=== PATIENT | female | born 1980 | race Two or more races ===

== ENCOUNTER 2023-09-28 21:58 | Emergency (ER) | payer MEDICAID ==
[~2023-09-28] VITALS: Ht 165.1 cm; Wt 73.0 kg
[2023-09-28 22:02] VITALS: TEMP 97.4; O2SAT 96
[2023-09-28] MEDS ORDERED: ONDANSETRON HCL 4MG/2ML INJ IV STA (23:01)
[2023-09-28] MEDS ORDERED: MORPHINE SULFATE 4 MG/ML INJ (FOR IV/IM USE) IV STA (23:01)
[2023-09-28] MEDS ORDERED: SODIUM CHLORIDE 0.9% 1,000 ML IV ONE (23:15)
[2023-09-28 23:27] LABS: BASOPHILS % 0.5 % (0.0-2.0); EOSINOPHILS % 0.4 % (0.0-5.0); HEMATOCRIT. 43.7 % (36.0-48.0); HEMOGLOBIN. 15.1 g/dL (12.0-16.0); LYMPHOCYTES % 25.6 % (20.0-50.0); MEAN CORPUSCULAR HEMOGLOBIN 29.5 pg (28.0-32.0); MEAN CORPUSCULAR HGB CONC 34.6 g/dL (31.0-37.0); MEAN CORPUSCULAR VOLUME 85.3 fL (81.0-99.0); MEAN PLATELET VOLUME 10.1 fl (7.4-10.4); NEUTROPHILS % 65.5 % (40.0-76.0); PLATELET 286 x1000/uL (130-400); RED BLOOD CELL COUNT 5.12 mill/uL (4.2-5.4); RED CELL DISTRIBUTION WIDTH 12.8 % (11.6-14.6); WHITE BLOOD COUNT 8.5 x1000/uL (4.5-11.0)
[2023-09-28 23:35] LABS: CHLORIDE 105 mEq/L (98-107); POTASSIUM 3.3 mEq/L (3.5-5.1); SODIUM 142 mEq/L (136-145)
[2023-09-28 23:37] LABS: CARBON DIOXIDE 27 mEq/L (21-32)
[2023-09-28 23:38] LABS: CALCIUM 10.2 mg/dL (8.7-10.4)
[2023-09-28 23:42] LABS: CREATININE 0.8 mg/dL (0.6-1.0); GLUCOSE 125 mg/dL (70-105)
[2023-09-28 23:43] LABS: UREA NITROGEN BLOOD 9 mg/dL (9-23)
[2023-09-28 23:44] LABS: ALANINE AMINOTRANSFERASE 22 IU/L (10-49); ASPARTATE AMINOTRANSFERASE 23 IU/L (<34)
[2023-09-28 23:45] LABS: BILIRUBIN DIRECT 0.2 mg/dL (<=3.0); BILIRUBIN TOTAL 0.6 mg/dL (0.1-1.0); PROTEIN TOTAL 7.3 g/dL (6.0-8.3)
[2023-09-29 00:13] LABS: HCG SCREEN NEGATIVE
[2023-09-29] MEDS ORDERED: POTASSIUM CHLORIDE 20MEQ/PACKET PO ONE (00:30)
[2023-09-29 01:08] LABS: CLARITY URINE TURBID (CLEAR); COLOR URINE YELLOW (YELLOW); GLUCOSE URINE NEGATIVE (NEGATIVE); KETONES URINE TRACE (NEGATIVE); LEUKOCYTE ESTERASE URINE NEGATIVE (NEGATIVE); NITRITE URINE NEGATIVE (NEGATIVE); OCCULT BLOOD URINE NEGATIVE (NEGATIVE); PH URINE 8.5 (4.5-8.0); PROTEIN URINE 1+ (NEGATIVE); UROBILINOGEN URINE 0.2 E.U./dL (0.2-1.0)
[2023-09-29 01:22] LABS: AMORPHOUS SEDIMENT URINE 2+ /lpf; BACTERIA URINE 2+; RBC URINE NONE SEEN /hpf (0-2); SQUAMOUS EPITHELIAL CELL URINE 1+ /lpf (RARE/1+); WBC URINE NONE SEEN /hpf (0-2)
[2023-09-29 01:49] VITALS: BP 116/82; PULSE 100; RESP 18
[2023-09-29] MEDS: KETOROLAC 30MG/ML VIAL IM ONE (01:49)
[2023-09-29] MEDS: ONDANSETRON HCL 4MG/2ML INJ IM ONE (01:49)
== END 2023-09-29 01:45 | disposition left against medical advice (07) ==
LOC: ER 21:58
DX: R10.84 Generalized abdominal pain (principal); R11.2 Nausea with vomiting, unspecified
CPT/HCPCS: 99284; 80076; 80048; 84703; 83690; 85025; 36415; 81003; 96372; J7030; J1885; J2405